=== PATIENT | female | born 2000 | race Caucasian/White ===

== ENCOUNTER 2025-04-10 02:37 | Emergency (ER) | payer SELFPAY | END 2025-04-10 03:54 | disposition home or self-care (01) | LOC: MADERS 02:37 | DX: K08.89 Other specified disorders of teeth and supporting structures (principal); F17.210 Nicotine dependence, cigarettes, uncomplicated; Z59.71 Insufficient health insurance coverage | CPT/HCPCS: 99282; J0665 ==

== ENCOUNTER 2025-05-13 17:06 | Emergency (ER) | payer SELFPAY ==
[2025-05-13] MEDS ORDERED: Ibuprofen 800 MG TAB ONE (17:46)
[2025-05-13] MEDS ORDERED: HYDROcodone/Acetaminophen 10/325 mg Tablet ONE (17:46)
== END 2025-05-13 18:10 | disposition home or self-care (01) ==
LOC: MADERS 17:06
DX: K02.9 Dental caries, unspecified (principal); K04.7 Periapical abscess without sinus; R68.84 Jaw pain; E66.9 Obesity, unspecified; F17.210 Nicotine dependence, cigarettes, uncomplicated
CPT/HCPCS: 64400; J0665

== ENCOUNTER 2025-05-14 08:02 | Emergency (ER) | payer SELFPAY ==
[2025-05-14] MEDS ORDERED: Iopamidol 370 76% 100 ML VIAL ONE (09:00)
[2025-05-14] MEDS ORDERED: Ondansetron PF 4 MG/2 ML Vial ONE (09:10)
[2025-05-14 09:15] LABS: BHCG - Serum Negative (NEGATIVE); Pregs Control Background? CLEAR/WHITE (CLR/WHITE); Pregs Control Bar Appear? YES (CONTROL BAR)
[2025-05-14 09:19] LABS: ALT (SGPT) 12 U/L (Less than 34); AST (SGOT) 16 U/L (11-34); Albumin 4.1 g/dL (3.1-4.5); Alkaline Phosphatase 62 U/L (40-110); Anion Gap 15 mmol/L (10-20); BUN (Urea Nitrogen) 10 mg/dL (7.0-18.7); Bilirubin, Total 0.4 mg/dL (0.3-1.2); Calc. Creatinine Clearance 0 mL/min (70-130); Calcium 8.7 mg/dL (7.8-10.44); Carbon Dioxide 21 mmol/L (22-29); Chloride 107 mmol/L (98-107); Globulin 2.7 g/dL (2.4-3.5); Glucose 101 mg/dL (70-105); Potassium 4.0 mmol/L (3.5-5.1); Sodium 139 mmol/L (136-145)
[2025-05-14 09:23] LABS: Hematocrit 41.9 % (36.0-47.0); Hemoglobin 13.4 g/dL (12.0-16.0); MDiff Complete? YES; Mean Corpuscular Hemoglobin 29.9 pg (27.0-31.0); Mean Corpuscular Volume 93.5 fl (78.0-98.0); Platelet Adequacy Comment Appears Adequate; Platelet Count 235 10x3/uL (130-400); Red Blood Cell (RBC) Count 4.48 mill/uL (4.20-5.40); White Blood Cell (WBC) Count 15.4 10x3/uL (4.8-10.8)
== END 2025-05-14 12:22 | disposition short-term general hospital (02) ==
LOC: MADERS 08:02
DX: A41.9 Sepsis, unspecified organism (principal); D72.825 Bandemia; E86.0 Dehydration; K04.7 Periapical abscess without sinus; B99.8 Other infectious disease; E66.9 Obesity, unspecified; F17.210 Nicotine dependence, cigarettes, uncomplicated
CPT/HCPCS: 64400; 70487; 80053; 83605; 84703; 85025; 87040; 96361; 96365; 96367; 96375; J0665; J2405; J2543; J2919; J3490; J7030; Q9967

== ENCOUNTER 2025-06-14 10:23 | Emergency (ER) | payer SELFPAY ==
[~2025-06-14 10:23] MED LIST: Iopamidol 370 76% 100 ML VIAL ONE
[2025-06-14 11:12] LABS: BHCG - Serum Negative (NEGATIVE); Pregs Control Background? CLEAR/WHITE (CLR/WHITE); Pregs Control Bar Appear? YES (CONTROL BAR)
[2025-06-14 11:15] LABS: Hematocrit 36.6 % (36.0-47.0); Hemoglobin 11.6 g/dL (12.0-16.0); Mean Corpuscular Hemoglobin 29.1 pg (27.0-31.0); Mean Corpuscular Volume 92.0 fl (78.0-98.0); Platelet Count 193 10x3/uL (130-400); Red Blood Cell (RBC) Count 3.98 mill/uL (4.20-5.40); White Blood Cell (WBC) Count 9.0 10x3/uL (4.8-10.8)
[2025-06-14] MEDS ORDERED: Acetaminophen 500 MG TAB ONE (11:15)
[2025-06-14 11:23] LABS: ALT (SGPT) 11 U/L (Less than 34); AST (SGOT) 12 U/L (11-34); Albumin 3.9 g/dL (3.1-4.5); Alkaline Phosphatase 57 U/L (40-110); Anion Gap 15 mmol/L (10-20); BUN (Urea Nitrogen) 8 mg/dL (7.0-18.7); Bilirubin, Total 0.3 mg/dL (0.3-1.2); Calc. Creatinine Clearance 0 mL/min (70-130); Calcium 8.5 mg/dL (7.8-10.44); Carbon Dioxide 22 mmol/L (22-29); Chloride 106 mmol/L (98-107); Globulin 2.9 g/dL (2.4-3.5); Glucose 120 mg/dL (70-105); Lipase 26 U/L (8-78); Potassium 4.1 mmol/L (3.5-5.1); Sodium 139 mmol/L (136-145)
[2025-06-14 11:30] LABS: MDiff Complete? YES; Manual Diff?? YES
[2025-06-14 11:31] LABS: Platelet Adequacy Comment Appears Adequate
[2025-06-14 11:51] LABS: Glucose, Urine (Dipstick) Negative (Negative); Leukocyte Moderate (Negative); Protein, Urine (Dipstick) 30 mg/dL (Neg-Trace); Specific Gravity, Urine 1.015 (1.005-1.030)
[2025-06-14 11:57] LABS: CAUTI Indications for Culture Pelvic or flank pain; RBC/HPF 0-3 HPF (0-3); WBC/HPF Greater than 50 HPF (0-3)
[2025-06-14 11:58] LABS: Bacteria/HPF 1+ HPF (None Seen); Urine Culture Reflex Yes Yes
[2025-06-14] MEDS ORDERED: cefTRIAXone (ROCEPHIN) 2 GM VIAL ONE (12:04)
== END 2025-06-14 12:46 | disposition home or self-care (01) ==
LOC: MADERS 10:23
DX: N10 Acute pyelonephritis (principal); R65.10 Systemic inflammatory response syndrome (SIRS) of non-infectious origin without acute organ dysfunction; F43.10 Post-traumatic stress disorder, unspecified; F41.9 Anxiety disorder, unspecified; F32.A Depression, unspecified; F17.290 Nicotine dependence, other tobacco product, uncomplicated
CPT/HCPCS: 36415; 74177; 80053; 81001; 83605; 83690; 84703; 85025; 87040; 87077; 87086; 87186; 94760; 96361; 96365; 96375; J0696; J2270; J7030; Q9967

== ENCOUNTER 2025-06-15 03:05 | Emergency (ER) | payer SELFPAY ==
[2025-06-15] MEDS ORDERED: Ketorolac Tromethamine 30 MG (1 mL) VIAL ONE (04:01)
[2025-06-15] MEDS ORDERED: Ondansetron PF 4 MG/2 ML Vial ONE (04:01)
[2025-06-15 04:04] LABS: Hematocrit 37.9 % (36.0-47.0); Hemoglobin 12.3 g/dL (12.0-16.0); MDiff Complete? YES; Mean Corpuscular Hemoglobin 29.7 pg (27.0-31.0); Mean Corpuscular Volume 92.0 fl (78.0-98.0); Platelet Count 204 10x3/uL (130-400); Red Blood Cell (RBC) Count 4.12 mill/uL (4.20-5.40); White Blood Cell (WBC) Count 9.2 10x3/uL (4.8-10.8)
[2025-06-15 04:13] LABS: INR-International Normal Ratio 1.1; PTT 30.9 sec (22.9-36.1); Prothrombin Time 13.8 sec (12.0-14.7)
[2025-06-15 04:34] LABS: ALT (SGPT) 12 U/L (Less than 34); AST (SGOT) 19 U/L (11-34); Albumin 4.2 g/dL (3.1-4.5); Alkaline Phosphatase 63 U/L (40-110); Anion Gap 13 mmol/L (10-20); BUN (Urea Nitrogen) 9 mg/dL (7.0-18.7); Bilirubin, Total 0.2 mg/dL (0.3-1.2); Calc. Creatinine Clearance 0 mL/min (70-130); Calcium 8.8 mg/dL (7.8-10.44); Carbon Dioxide 24 mmol/L (22-29); Chloride 106 mmol/L (98-107); Globulin 3.1 g/dL (2.4-3.5); Glucose 118 mg/dL (70-105); Potassium 4.2 mmol/L (3.5-5.1); Sodium 139 mmol/L (136-145)
[2025-06-15 05:16] LABS: Glucose, Urine (Dipstick) Negative (Negative); Leukocyte Negative (Negative); Protein, Urine (Dipstick) Negative (Neg-Trace); Specific Gravity, Urine 1.015 (1.005-1.030)
[2025-06-15 05:17] LABS: Bacteria/HPF Rare-Few HPF (None Seen); CAUTI Indications for Culture Pelvic or flank pain; RBC/HPF 0-3 HPF (0-3); Urine Culture Reflex No No; WBC/HPF 0-3 HPF (0-3)
== END 2025-06-15 05:11 | disposition short-term general hospital (02) ==
LOC: MADERS 03:05
DX: N10 Acute pyelonephritis (principal); F43.10 Post-traumatic stress disorder, unspecified; F41.9 Anxiety disorder, unspecified; F32.A Depression, unspecified; F17.290 Nicotine dependence, other tobacco product, uncomplicated; Z91.199 Patient's noncompliance with other medical treatment and regimen due to unspecified reason; Z79.899 Other long term (current) drug therapy
CPT/HCPCS: 80053; 81001; 83605; 85025; 85610; 85730; 87040; 94760; 96361; 96365; 96375; J1885; J2270; J2405; J2543; J7120